=== PATIENT | male | born 1955 | race Caucasian/White ===

== ENCOUNTER 2020-02-01 22:12 | Emergency (ER) | payer MEDICARE, BC ==
--- NOTE | 2020-02-01 22:50 | EDM.PDOC ---
ED HPI GENERAL MEDICAL PROBLEM - General Chief Complaint: Upper Extremity Injury/Pain Stated Complaint: LG LUMP ON L ELBOW Time Seen by Provider: 02/01/20 22:42 Source of Information: Reports: Patient, RN Notes Reviewed History Limitations: Reports: No Limitations - History of Present Illness INITIAL COMMENTS - FREE TEXT/NARRATIVE: 65-year-old gentleman presents emergency department today with a large lump on his left elbow he is unsure how he got this denies any trauma it is not painful however it is causing trouble as it does get in the way at times he is never had this before Left Elbow Pain Score (Numeric/FACES): 2 - Related Data Allergies Allergy/AdvReac Type Severity Reaction Status Date / Time No Known Allergies Allergy Verified 02/01/20 22:34 Home Meds: Home Meds Gabapentin [Neurontin] 300 mg PO BID 02/01/20 [History] Omeprazole 40 mg PO BID 02/01/20 [History] Past Medical History Psychiatric History: Reports: Anxiety, Depression Oncologic (Cancer) History: Reports: Other (See Below) Other Oncologic History: carcinoid tumor. - Past Surgical History HEENT Surgical History: Reports: Other (See Below) Other HEENT Surgeries/Procedures: deviated septum surgery GI Surgical History: Reports: EGD, Other (See Below) Other GI Surgeries/Procedures: carcinoid tumors taken out Musculoskeletal Surgical History: Reports: Knee Replacement Social & Family History - Tobacco Use Smoking Status *Q: Never Smoker - Caffeine Use Caffeine Use: Reports: Coffee - Recreational Drug Use Recreational Drug Use: No Review of Systems - Review of Systems Review Of Systems: See Below Constitutional: Reports: No Symptoms Musculoskeletal: Reports: No Symptoms Skin: Reports: Lesions ED EXAM, GENERAL - Physical Exam Exam: See Below Free Text/Narrative:: Examination of the elbow he does have a large fluctuant mass over the elbow consistent with an olecranon bursitis Exam Limited By: No Limitations General Appearance: Alert, WD/WN, No Apparent Distress ED TRAUMA EXTREMITY PROCEDURES - I&D Site: Left elbow Skin Prep: Chlorhexidine (Hibiciens) Local Anesthesia: Lidocaine: Other (Ethylene chloride spray) Drainage: Small Amount Probed to Break Up Loculations: No Complications: No Complication Description: Attempted to drain the bursa unfortunately 1/2 cc of blood was all that was obtained Course - Vital Signs Last Recorded V/S: Last Vital Signs Temp 97.3 F 02/01/20 22:33 Pulse 74 02/01/20 22:33 Resp 16 02/01/20 22:33 BP 128/88 02/01/20 22:33 Pulse Ox 93 L 02/01/20 22:33 - Orders/Labs/Meds Meds: Medications Discontinued Medications Generic Name Dose Route Start Last Admin Trade Name Curt PRN Reason Stop Dose Admin Triamcinolone Acetonide 40 mg 02/01/20 22:50 02/01/20 23:05 Kenalog-40 INJECT 02/01/20 22:51 Not Given ASDIRECTED ONE Departure - Departure Time of Disposition: 23:08 Disposition: Home, Self-Care 01 Condition: Fair Clinical Impression: Olecranon bursitis of left elbow - Discharge Information Instructions: Bursitis, [id number] Referrals: PCP,None [Primary Care Provider] - Forms: ED Department Discharge Additional Instructions: The orthopedic clinic will call you this week for an appointment time Sepsis Event Note - Evaluation Sepsis Screening Result: No Definite Risk - Focused Exam Vital Signs: Vital Signs Temp Pulse Resp BP Pulse Ox 02/01/20 22:33 97.3 F 74 16 128/88 93 L 02/01/20 22:26 97.3 F 74 16 128/88 93 L Date Exam was Performed: 02/01/20 Time Exam was Performed: 23:07 - Assessment/Plan Plan: Assessment Acuity = acute Site and laterality = olecranon bursitis Etiology = unknown Manifestations = none Location of injury = Home Lab values = none Plan Consultation set up for orthopedics this week This note was dictated using [employer] voice recognition software please call with any questions on syntax or grammar.
[2020-02-01] MEDS: Triamcinolone Acetonide 40 MG/ML 1 ML MDV INJECT ONE ×2 (22:59→23:05)
== END 2020-02-01 23:16 | disposition home or self-care (01) ==
LOC: JP.ED 22:12
DX: M70.22 Olecranon bursitis, left elbow (principal); Z79.899 Other long term (current) drug therapy
CPT/HCPCS: 20605; 99282-25; 99283; J3301

== ENCOUNTER 2021-02-28 12:05 | Emergency (ER) | payer MEDICARE, BC ==
--- NOTE | 2021-02-28 12:55 | EDM.PDOC ---
ED HPI GENERAL MEDICAL PROBLEM - General Chief Complaint: Skin Complaint Stated Complaint: INFECTED LEFT THUMB Time Seen by Provider: 02/28/21 12:45 Source of Information: Reports: Patient History Limitations: Reports: No Limitations - History of Present Illness INITIAL COMMENTS - FREE TEXT/NARRATIVE: 66-year-old male with a chronic inflammation of his left thumb since his thum bnail was removed a few months ago at the [facility]. He has been red and sore, but over the last 12 hours some purulent material was expelled from the area so he thought he needed antibiotic. No fevers or chills, no redness that is extending beyond the IP joint of the thumb. Onset: Gradual Associated Symptoms: Reports: No Other Symptoms Left Finger-Thumb Pain Score (Numeric/FACES): 6 - Related Data Allergies Allergy/AdvReac Type Severity Reaction Status Date / Time No Known Allergies Allergy Verified 02/28/21 12:55 Home Meds: Home Meds Gabapentin [Neurontin] 300 mg PO BID 02/01/20 [History] Omeprazole 40 mg PO BID 02/01/20 [History] buPROPion [buPROPion XL] 150 mg PO DAILY 02/28/21 [History] Past Medical History Musculoskeletal History: Reports: Other (See Below) Other Musculoskeletal History: left elbow pain Psychiatric History: Reports: Anxiety, Depression Oncologic (Cancer) History: Reports: Other (See Below) Other Oncologic History: carcinoid tumor. - Past Surgical History HEENT Surgical History: Reports: Other (See Below) Other HEENT Surgeries/Procedures: deviated septum surgery GI Surgical History: Reports: EGD, Other (See Below) Other GI Surgeries/Procedures: carcinoid tumors taken out Musculoskeletal Surgical History: Reports: Knee Replacement Other Musculoskeletal Surgeries/Procedures:: LT TKA Social & Family History - Caffeine Use Caffeine Use: Reports: Coffee ED ROS GENERAL - Review of Systems Review Of Systems: See Below Constitutional: Denies: Fever, Chills Respiratory: Denies: Shortness of Breath Cardiovascular: Denies: Chest Pain GI/Abdominal: Denies: Nausea, Vomiting Skin: Reports: Erythema Neurological: Denies: Dizziness, Headache ED EXAM, SKIN/RASH Exam: See Below Exam Limited By: No Limitations General Appearance: Alert, No Apparent Distress Head: Atraumatic Respiratory/Chest: No Respiratory Distress Extremities: Other (Exam is limited to the left hand. Distal to the IP joint of the thumb dorsally there is some erythema, slight swelling and tenderness to palpation. Nail is gone.) Course - Vital Signs Last Recorded V/S: Last Vital Signs Temp 98.3 F 02/28/21 12:54 Pulse 65 02/28/21 12:54 Resp 16 02/28/21 12:54 BP 135/59 L 02/28/21 12:54 Pulse Ox 95 02/28/21 12:54 - Re-Assessments/Exams Free Text/Narrative Re-Assessment/Exam: 02/28/21 12:54 He does probably have some chronic inflammation or infection in the matrix area of the thumb, and will be placed on clindamycin for the rest of this week and can recheck next week when home. Warm compresses to the area may be beneficial while on antibiotics. 02/28/21 13:07 Patient was placed on clindamycin 300 mg 3 times a day, encouraged to use warm compresses and recheck next week. Departure - Departure Time of Disposition: 13:15 Disposition: Home, Self-Care 01 Clinical Impression: Cellulitis of left thumb - Discharge Information Instructions: Cellulitis, Adult Referrals: PCP,None [Primary Care Provider] - Forms: ED Department Discharge Care Plan Goals: Take 2 pills of antibiotic 3 times a day for at least 7 to 10 days, and recheck next week when you are home. Warm compresses to the thumb while on antibiotics may be beneficial. Sepsis Event Note (ED) - Focused Exam Vital Signs: Vital Signs Temp Pulse Resp BP Pulse Ox 02/28/21 12:54 98.3 F 65 16 135/59 L 95 02/28/21 12:37 98.3 F 66 16 135/59 L 95
== END 2021-02-28 13:15 | disposition home or self-care (01) ==
LOC: JP.ED 12:05
DX: L03.012 Cellulitis of left finger (principal)
CPT/HCPCS: 99283